=== PATIENT | female | born 1985 | race Caucasian/White ===

== ENCOUNTER → 2017-05-31 | Outpatient (CLI) | payer OTHER ==
--- NOTE | 2017-05-31 10:14 | XR ---
EXAMINATION TYPE: XR knee complete LT DATE OF EXAM: 05/31/2017 CLINICAL HISTORY: Left knee pain from fall TECHNIQUE: Three views of the left knee are obtained. COMPARISON: None. FINDINGS: There is no acute fracture/dislocation evident in left knee. The tri-compartment joint sp aces appear within normal limits. The overlying soft tissue appears unremarkable. IMPRESSION: There is no acute fracture or dislocation in the left knee.
== END | disposition home or self-care (01) ==
LOC: RADXRMAIN 09:39
PROVIDERS: ATTEND Emergency Medicine
DX: S80.02XA Contusion of left knee, initial encounter (principal)

== ENCOUNTER → 2017-06-05 | Outpatient (CLI) | payer OTHER ==
--- NOTE | 2017-06-05 16:58 | XR ---
Three-view lumbar spine INDICATION: Pain, displaced fracture FINDINGS: There 5 lumbar-type vertebral bodies. The pedicles are intact. Disc heights are preserved. Vertebral body heights are preserved. Alignment is normal. IMPRESSIONS: 1. Normal three-view lumbar spine
== END | disposition home or self-care (01) ==
LOC: RADXRMAIN 16:29
PROVIDERS: ATTEND Emergency Medicine
DX: S30.0XXD Contusion of lower back and pelvis, subsequent encounter (principal)
CPT/HCPCS: 72100

== ENCOUNTER → 2017-06-16 | Outpatient (CLI) | payer OTHER | END | disposition home or self-care (01) | LOC: RADMRIMAIN 12:24 | PROVIDERS: ATTEND Emergency Medicine | DX: Z53.9 Procedure and treatment not carried out, unspecified reason (principal) ==

== ENCOUNTER → 2017-06-19 | Outpatient (CLI) | payer OTHER ==
--- NOTE | 2017-06-19 09:40 | XR ---
EXAMINATION TYPE: XR orbit detect foreign body DATE OF EXAM: 06/19/2017 COMPARISON: NONE HISTORY: Pre-MRI clearance history of foreign body to both eyes TECHNIQUE: 3 views bilateral orbits are performed. FINDINGS: No metallic foreign bodies in or about the orbits are identified. Note is made a left septa l deviation. The paranasal sinuses are clear. IMPRESSION: 1. No metallic foreign bodies identified to contraindicate MRI.
--- NOTE | 2017-06-19 11:30 | MR ---
EXAMINATION TYPE: MR lumbar spine wo con DATE OF EXAM: 06/19/2017 COMPARISON: NONE HISTORY: contusion on back, fell TECHNIQUE: T1 and T2 axial and sagittal images of the lumbar spine are submitted. FINDINGS: There is no abnormal signal seen within the visualized spinal cord or paraspinal soft tissu es. Sclerosis of the right SI joint correlate for sacroiliitis. At L1-2 there is no degenerative disc disease, disc herniation, canal stenosis, or foraminal encroach ment. At L2-3 there is no degenerative disc disease, disc herniation, canal stenosis, or foraminal encroach ment. At L3-4 there is no degenerative disc disease, disc herniation, canal stenosis, or foraminal encroach ment. At L4-5 there is mild loss of disc signal broad-based central disc bulging but no canal stenosis or f oraminal encroachment. Findings suggestive of annular tear laterally to the right. Mild facet arthrop athy. At L5-S1 there is no degenerative disc disease, disc herniation, canal stenosis, or foraminal encroac hment. Mild facet arthropathy. IMPRESSION: 1. Mild degenerative disc disease L4-L5 with circumferential disc bulging but no canal stenosis or fo raminal encroachment. 2. Multilevel mild facet arthropathy.
--- NOTE | 2017-06-19 11:51 | MR ---
EXAMINATION TYPE: MR knee LT wo con DATE OF EXAM: 06/19/2017 COMPARISON: NONE HISTORY: Left knee pain and contusion TECHNIQUE: Multiplanar, multisequence imaging of the left knee is performed without IV contrast. FINDINGS: MEDIAL MENISCUS: Anterior and posterior horns are intact without tear. LATERAL MENISCUS: Anterior and posterior horns are intact without tear. CRUCIATE LIGAMENTS: The anterior and posterior cruciate ligaments are intact and unremarkable. COLLATERAL LIGAMENTS: The medial collateral ligament and lateral collateral ligament complex are inta ct and unremarkable. EXTENSOR MECHANISM: Visualized quadriceps and patellar tendons are intact. EFFUSION: No significant suprapatellar joint effusion. POPLITEAL CYST: No popliteal/andrews cyst. TRICOMPARTMENT SPACES: Joint spaces are preserved. No evidence of erosive change. BONE MARROW SIGNAL: 1.2 cm area of marrow edema involving the medial femoral condyle and medial bruner la. No definite fracture line. IMPRESSION: 1. Bone contusions involving the medial femur and medial patella with no evidence of fracture line. 2. No meniscal or ligamentous tear
== END | disposition home or self-care (01) ==
LOC: RADMRIMAIN 09:04
PROVIDERS: ATTEND Emergency Medicine
DX: S80.02XD Contusion of left knee, subsequent encounter (principal); S70.12XA Contusion of left thigh, initial encounter; M51.26 Other intervertebral disc displacement, lumbar region; M51.36 Other intervertebral disc degeneration, lumbar region; M46.86 Other specified inflammatory spondylopathies, lumbar region; Z01.818 Encounter for other preprocedural examination
CPT/HCPCS: 70030; 72148